=== PATIENT | female | born 1970 | race Caucasian/White ===

== ENCOUNTER 2023-08-08 12:28 | Emergency (ER) | payer SELFPAY ==
[2023-08-08] VITALS (16 sets, daily range): BP systolic 121–158; BP diastolic 71–96; PULSE 70–90; RESP 13–21; TEMP 36.6–36.9; O2SAT 93–100
--- NOTE | ~2023-08-08 | XR_ITS ---
XR chest 1V portable DATE: 08/08/2023 13:00 INDICATION: Mid chest pain for a few days, shortness of breath TECHNIQUE: Portable AP chest on 08/08/2023 at 1301 hours COMPARISON: None FINDINGS: Normal heart size. No hilar or mediastinal enlargement. No pulmonary infiltrate or consolid ation, pleural effusion or pulmonary vascular congestion or pneumothorax. IMPRESSION: No active cardiopulmonary disease Reviewed, dictated and finalized at location A.
--- NOTE | 2023-08-08 12:33 | ECG_ITS ---
Measurements Intervals [place] Rate: 86 P: 56 OK: 131 QRS: 53 QRSD: 84 T: 36 QT: 328 QTc: 393 Interpretive Statements SINUS RHYTHM DELAYED PRECORDIAL R/S TRANSITION BORDERLINE ECG NO PREVIOUS ECG AVAILABLE FOR COMPARISON Electronically Signed On 08-08-2023 19:47:54 CDT by Sridhar Bar D.O.
[2023-08-08] MEDS: ASPIRIN 81 MG CHEWABLE TABLET 324 MG PO (13:00)
[2023-08-08] MEDS: LORazepam INJ (*CRX) 2 MG/ML VIAL 1 MG IV PUSH (13:02)
[2023-08-08 13:11] LABS: Basophils Absolute Auto 0.04 K/mm3 (0.00-0.10); Basophils Percent Auto 0.5 % (0.0-1.0); Eosinophils Absolute Auto 0.15 K/mm3 (0.02-0.50); Eosinophils Percent Auto 1.8 % (1.0-6.0); Hematocrit 39.4 % (35.0-49.0); Hemoglobin 13.4 g/dL (12.0-15.0); Immature Granulocyte Absolute 0.03 K/mm3 (0.00-0.00); Immature Granulocyte Percent A 0.4 % (0.0-0.0); Lymphocytes Absolute Auto 1.72 K/mm3 (1.10-4.50); Mean Corpuscular Hemoglobin 32.4 pg (27.0-31.0); Mean Corpuscular Volume 95.2 fL (78.0-102.0); Mean Platelet Volume 9.3 fl (9.2-11.8); Monocytes Absolute Auto 0.44 K/mm3 (0.10-0.90); Monocytes Percent Auto 5.4 % (2.0-11.0); Neutrophils Absolute Auto 5.8 K/mm3 (1.7-7.2); Neutrophils Percent Auto 70.9 % (50.0-70.0); Platelet Count Result 301 K/mm3 (150-420); Red Blood Count 4.14 M/mm3 (4.20-5.40); Red Cell Distribution Width 12.6 % (11.6-14.4); White Blood Count 8.2 K/mm3 (4.8-10.8)
--- NOTE | 2023-08-08 13:18 | ED.GENADULT ---
HPI - General Adult General Chief complaint: Chest Pain Stated complaint: chest pain Time Seen by Provider: 08/08/23 12:44 Source: patient Mode of arrival: ambulatory Limitations: no limitations History of Present Illness HPI narrative: patient is a 53-year-old white female complains of constant chest tightness 6/10 in severity for the past 7 days. It has waxed and waned in severity but it has always been there. Yesterday she started to feel really severe fatigue. Nothing seems to make the chest tightness worse. She said she was a little short of breath today and has had a little bit of a cough without sputum productive. denies any nausea vomiting diaphoresis diarrhea fever problems eating or drinking voiding or stooling bleeding or bruising rash or itching lumps bumps or swelling dizziness. She said she felt a little lightheaded this morning. She has no history of heart disease lung disease kidney liver disease anemia hypertension diabetes stroke. Seven days ago she had her wellness check and they said her blood pressure was little high they recommended she get a monitor and check it. Her blood pressure today was 123/89 and 143/96 that is the highest it has been all week so she called her insurance nurse who told her she needed to follow-up with her doctor tomorrow. Patient became concerned and came to the emergency room for evaluation. Patient does have history of panic attacks anxiety and depression. Patient's last panic attack was 2 years ago where she had tightness in the chest racing in her chest feel like passing out. Few years ago she had a stress test that was negative. patient denies any other complaints. Past medical history anxiety depression panic attacks Past surgical history C-sections cholecystectomy Allergies no known drug allergies Social history she works is [employer] and [employer] person essentially works in the office. She says she has been under lot of stress lately at work. Related Data Home Medications Medication Instructions Recorded Confirmed Unable to Obtain Home Medications 08/08/23 08/08/23 Allergies Allergy/AdvReac Type Severity Reaction Status Date / Time No Known Allergies Allergy Verified 08/08/23 12:38 Exam Narrative: White Tearful female patient in moderate distress and very anxious.? Head normocephalic, atraumatic.? Eyes conjunctiva pink sclera nonicteric.? Extraocular movements are intact.? Ears externally normal.? Oropharynx is clear with moist mucous membranes without exudates.? Neck is supple nontender no lymphadenopathy.? Back is nontender.? Lungs are clear.? Heart is regular rate and rhythm without murmurs gallops or rubs.? Chest wall is nontender.? Abdomen is soft and nontender no hepatosplenomegaly or masses no CVA tenderness no abdominal bruits.? Extremities no cyanosis clubbing or edema.? Skin is warm and dry without rashes or lesions.? Neurological patient is alert and oriented x4.? Motor and sensory grossly intact.? Gait is normal. Course Vital Signs Vital signs: Vital Signs Temperature 36.6 C 08/08/23 12:30 Pulse Rate 89 08/08/23 12:30 Respiratory Rate 20 08/08/23 12:30 Blood Pressure 158/80 H 08/08/23 12:30 Pulse Oximetry 99 08/08/23 12:30 Oxygen Delivery Room Air 08/08/23 12:30 Temperature 36.6 C 08/08/23 12:30 Pulse Rate 80 08/08/23 12:40 Respiratory Rate 20 08/08/23 12:30 Blood Pressure 158/80 H 08/08/23 12:30 Pulse Oximetry 99 08/08/23 12:30 Oxygen Delivery Room Air 08/08/23 12:30 Medical Decision Making MDM Narrative Medical decision making narrative: Patient was placed in room 2. History and physical was performed. Hep-Lock was started she was given 325 mg aspirin and Ativan 1 mg IV. EKG was done that showed normal sinus rhythm at a rate of 86 normal intervals normal axis normal QRS normal ST and T-wave impression normal EKG is independently interpreted by me. 1:36 p.m. patient's pain
[2023-08-08 13:25] LABS: INR 0.9; Partial Thromboplastin Time 29.3 SEC (23.90-30.70); Prothrombin Time 10.4 Seconds (9.50-12.10)
[2023-08-08 13:28] LABS: D Dimer 0.55 mg/L (0.19-0.50)
[2023-08-08 13:33] LABS: Alanine Aminotransferase 16 U/L (14-59); Albumin Level 3.5 g/dL (3.4-5.0); Alkaline Phosphatase 95 U/L (46-116); Anion Gap 7 mmol/L (8-16); Aspartate Amino Transferase 16 U/L (15-37); Bilirubin,Total 0.4 mg/dL (0.00-1.00); Blood Urea Nitrogen 7 mg/dL (7-18); Calcium 9.1 mg/dL (8.5-10.1); Carbon Dioxide 28 mmol/L (21-32); Chloride 105 mmol/L (98-108); Estimated CRCL calculation 87 ml/min; Estimated Glomerular Filt Rate > 60; Glucose 137 mg/dL (70-99); NT Pro B Type Natriuretic Pept 18 pg/mL (0-125); Osmolality Calculated 290 mOsm/kg (285-295); Potassium 3.6 mmol/L (3.5-5.1); Sodium 140 mmol/L (136-145); Total Protein 7.2 g/dL (6.4-8.2); Troponin I 4.8 ng/L (0.00-60.4)
== END 2023-08-08 14:11 | disposition home or self-care (01) ==
PROVIDERS: Emergency Provider Emergency Medicine; PCP Family Medicine
DX: R07.89 Other chest pain (principal); F41.0 Panic disorder [episodic paroxysmal anxiety]
CPT/HCPCS: 36415; 71045; 80053; 83880; 84484; 85025; 85380; 85610; 85730; 93005; 96374; 99284; A9270; J2060